=== PATIENT | female | born 1940 | race Caucasian/White ===

== ENCOUNTER 2018-08-02 22:30 | Emergency (ER) | payer MEDICARE, MEDICAID ==
[2018-08-02] MEDS ORDERED: oxyCODONE TAB* 5 MG TAB PO ONE (23:04)
--- NOTE | 2018-08-02 23:37 | ED ---
Back Pain - HPI Summary HPI Summary: This patient is a 77 year old F presenting to [facility] accompanied by daughter who is translating for the patient with a chief complaint of left lower back pain since 2 weeks ago, but sx are much more severe today. Pt endorses dysuria, frequency, and urgency. She notes that today the pain is much more severe, causing difficulty ambulating, sitting, and sleeping. She denies N/V, constipation, and fever. PMHx HTN, CAD. SHx CABG. SHx cholecystectomy, 2x hernia repair. - History of Current Complaint Chief Complaint: EDBackInjuryPain Stated Complaint: LOWER BACK PAIN LT SIDE Time Seen by Provider: 08/02/18 22:57 Hx Obtained From: Patient Onset/Duration: Sudden Onset, Lasting Weeks, Still Present, Worse Since - today Timing: Constant, Lasting Weeks Back Pain Location: Is Discrete @ - left lower Severity Initially: Moderate Severity Currently: Severe Pain Intensity: 8 Pain Scale Used: 0-10 Numeric Character: Sharp Aggravating Symptom(s): Movement, Walking Alleviating Symptom(s): Nothing Associated Signs And Symptoms: Positive: Pain with Weight Bearing, Other - (+) dysuria, frequency, urgency. (-) N/V, constipation.. Negative: Fever - Allergies/Home Medications Allergies/Adverse Reactions: Allergies Allergy/AdvReac Type Severity Reaction Status Date / Time ANALGIN Allergy Unknown Uncoded 08/02/18 22:41 Reaction Details chlorine Allergy Coughing Uncoded 08/02/18 22:41 PMH/Surg Hx/FS Hx/Imm Hx Endocrine/Hematology History: Denies: Hx Diabetes Cardiovascular History: Reports: Hx Coronary Artery Disease - BYPASS IN 2006, Hx Hypertension, Other Cardiovascular Problems/Disorders - bypass 2006 Denies: Hx Pacemaker/ICD Respiratory History: Reports: Hx Asthma, Other Respiratory Problems/Disorders - HX OF BROKEN NOSE GI History: Reports: Hx Gastroesophageal Reflux Disease - ON MEDICATION FOR History: Denies: Hx Renal Disease Musculoskeletal History: Reports: Hx Arthritis - LEGS, BACK Sensory History: Reports: Hx Cataracts, Hx Contacts or Glasses - GLASSES Denies: Hx Deafness, Hx Hearing Aid Opthamlomology History: Reports: Hx Cataracts, Hx Contacts or Glasses - GLASSES EENT History: Denies: Hx Deafness Neurological History: Reports: Other Neuro Impairments/Disorders - DIZZINESS IN THE PAST- TOOK MECLIZINE ABOUT 6 MONTHS AGO Psychiatric History: Reports: Hx Depression - ON MEDICATION-FOR THE LAST YEAR Denies: Hx Panic Disorder - Surgical History Surgery Procedure, Year, and Place: GALLBLADDER REMOVED. BYPASS. CATARACTS. CARDIAC STENTS(CARD SCANNED IN [place] TO 3T). HERNIA REPAIR X2 Hx Anesthesia Reactions: No Infectious Disease History: No Infectious Disease History: Denies: Traveled Outside the [place] in Last 30 Days - Family History Known Family History: Negative: Blood Disorder - Social History Occupation: Retired Lives: With Family Alcohol Use: Rare Substance Use Type: Reports: None Smoking Status (MU): Never Smoked Tobacco Review of Systems Negative: Fever Negative: Vomiting, Nausea, Other - constipation Positive: dysuria, frequency, urgency Positive: Myalgia - lower left back, Decreased ROM - secondary to pain All Other Systems Reviewed And Are Negative: Yes Physical Exam - Summary Physical Exam Summary: Appearance: Well-appearing, Well-nourished, lying in bed comfortably Skin: Warm, dry, no obvious rash Eyes: sclera anicteric, no conjunctival pallor ENT: mucous membranes moist, pharynx appears normal Neck: Supple, nontender Respiratory: Clear to auscultation, no signs of respiratory distress Cardiovascular: Normal S1, S2. No murmurs. Normal distal pulses in tibial and radial bilaterally. Abdomen: Soft, nontender, normal active bowel sounds present Musculoskeletal: Pain over left lower back without CVA tenderness Neurological: A&Ox3, awake and alert, mentation is normal, speech is fluent and appropriate Psychiatric: affect is normal, does not appear anxious or depressed Triage Information Reviewed: Yes Vital Signs On Initial Exam: Initial Vitals Temp Pulse Resp BP Pulse Ox 99.8 F 67 16 118/63 96 08/02/18 22:37 08/02/18 22:37 08/02/18 22:37 08/02/18 22:37 08/02/18 22:37 Vital Signs Reviewed: Yes Diagnostics - Vital Signs Vital Signs Temp Pulse Resp BP Pulse Ox 08/02/18 22:37 99.8 F 67 16 118/63 96 - Laboratory Result Diagrams: 08/02/18 23:26 08/02/18 23:26 Lab Statement: Any lab studies that have been ordered have been reviewed, and results considered in the medical decision making process. Back Pain Course/Dx - Course Course Of Treatment: A 77-year-old F presents to the ED with a CC of left lower back for 2 weeks, but sx much more severe today. (+) dysuria, urgency, frequency. (-) N/V, contipation, and fever. some pain for 2 weeks, but sx much worse today, affects ability to ambulate, sleep. In the ED course, pt was given roxycodone. Pt shows abnl RDW, BUN, creat, urine blood, RBCs, and calcium oxylate crystals. - Diagnoses Differential Diagnosis/HQI/PQRI: Positive: Epidural Abscess, Fracture, Herniated Disc, Neoplasm, Osteomyelitis, Renal Colic Provider Diagnoses: Musculoskeletal back pain Discharge - Sign-Out/Discharge Documenting (check all that apply): Patient Departure - Discharge Plan Condition: Good Disposition: HOME Prescriptions: oxyCODONE TAB* [Roxycodone TAB 5 mg*] 5 mg PO Q4H PRN #8 tab MDD 3 tabs PRN Reason: Pain Patient Education Materials: Back Pain (ED) Referrals: Neha Fu MD [Primary Care Provider] - Additional Instructions: The tests we did tonight did not show evidence of a urinary tract infection, so I think your pain is coming from the back, perhaps a strain in the back. Rest and time should make it better, but if not make sure to check with your regular doctor. - Billing Disposition and Condition Condition: GOOD Disposition: Home - Attestation Statements Document Initiated by Yaron: Yes Documenting Scribe: Gunnar Mane Provider For Whom Yaron is Documenting (Include Credential): Dr. Osmar Bennett MD Scribe Attestation: IGunnar scribed for Dr. Osmar Bennett MD on 08/03/18 at 0617. Scribe Documentation Reviewed: Yes Provider Attestation: The documentation as recorded by the Gunnar prado accurately reflects the service I personally performed and the decisions made by me, Dr. Osmar Bennett MD
[2018-08-02 23:47] LABS: Hematocrit 36 % (35-47); Hemoglobin 11.9 g/dl (12.0-16.0); Mean Corpuscular HGB Conc 33 g/dl (31-36); Mean Corpuscular Hemoglobin 29 pg (27-31); Mean Corpuscular Volume 87 fL (80-97); Mean Platelet Volume 7.2 um3 (7.4-10.4); Platelet Count 194 10^3/ul (150-450); Red Cell Distribution Width 20 % (10.5-15); White Blood Count 5.5 10^3/ul (3.5-10.8)
[2018-08-03 00:02] LABS: Urine Appearance Cloudy; Urine Blood 2+ (Negative); Urine Color Yellow; Urine Ketones Negative (Negative); Urine Protein Negative (Negative); Urine Red Blood Cell 2+(6-10/hpf) (Absent); Urine Urobilinogen Negative (Negative); Urine White Blood Cell Trace(0-5/hpf) (Absent)
[2018-08-03 00:06] LABS: EGFR Non-African American 55.7 (>60)
[2018-08-03 00:23] LABS: ABS Basophils 0 10^3/ul (0-0.2); ABS Eosinophils 0.1 10^3/ul (0-0.6); ABS Monocytes 0.4 10^3/ul (0-0.8); ABS Nucleated RBC 0 10^3/ul; Eosinophil % 2.1 % (0-6); Lymphocyte % 17.9 % (25-47); Nucleated Red Blood Cells % 0
[2018-08-03 00:42] VITALS: BP 124/74
== END 2018-08-03 00:42 | disposition home or self-care (01) ==
LOC: ED 22:30
DX: M54.5 Low back pain (principal); I25.10 Atherosclerotic heart disease of native coronary artery without angina pectoris; R30.0 Dysuria; K59.00 Constipation, unspecified
CPT/HCPCS: 36415; 80053; 81003; 81015; 83605; 85025; 85652; 86140; 87040; 87086; 99282; A9270-GY